=== PATIENT | male | born 1995 | race African-American/Black ===

== ENCOUNTER → 2025-04-07 | Outpatient (CLI) | payer BC ==
[2025-04-07 12:51] LABS: BASOPHILS % 0.6 % (0.0-2.0); EOSINOPHILS % 6.5 % (0.0-5.0); HEMATOCRIT. 41.5 % (42.0-52.0); HEMOGLOBIN. 13.3 g/dL (14.0-18.0); LYMPHOCYTES % 40.9 % (20.0-50.0); MEAN PLATELET VOLUME 8.8 fl (7.4-10.4); MONOCYTES % 11.1 % (2.0-8.0); NEUTROPHILS % 40.9 % (40.0-76.0); PLATELET 175 x1000/uL (130-400); RED BLOOD CELL COUNT 5.24 mill/uL (4.7-6.1); RED CELL DISTRIBUTION WIDTH 14.3 % (11.6-14.6)
[2025-04-07 13:06] LABS: CREATININE 1.1 mg/dL (0.6-1.3)
[2025-04-07 13:07] LABS: LDL CHOLESTEROL 99 mg/dL (5-100); TRIGLYCERIDE 45 mg/dL (0-150); UREA NITROGEN BLOOD 13 mg/dL (9-23)
[2025-04-07 13:08] LABS: ASPARTATE AMINOTRANSFERASE 52 IU/L (<34); CLARITY URINE CLEAR (CLEAR); COLOR URINE YELLOW (YELLOW); GLUCOSE URINE NEGATIVE (NEGATIVE); KETONES URINE NEGATIVE (NEGATIVE); LEUKOCYTE ESTERASE URINE NEGATIVE (NEGATIVE); NITRITE URINE NEGATIVE (NEGATIVE); OCCULT BLOOD URINE NEGATIVE (NEGATIVE); PH URINE 6.0 (4.5-8.0); PROTEIN URINE NEGATIVE (NEGATIVE); SPECIFIC GRAVITY URINE 1.025 (1.005-1.030); UROBILINOGEN URINE 0.2 E.U./dL (0.2-1.0)
[2025-04-07 13:09] LABS: BILIRUBIN TOTAL 0.6 mg/dL (0.1-1.0); PROTEIN TOTAL 7.3 g/dL (6.0-8.3)
[2025-04-07 13:30] LABS: FOLIC ACID (FOLATE) SERUM 15.95 ng/mL (>5.38); VITAMIN B12 SERUM 630 pg/mL (211-911)
== END | disposition home or self-care (01) ==
LOC: LAB 12:25
PROVIDERS: ATTEND Internal Medicine
DX: R73.03 Prediabetes (principal); D64.9 Anemia, unspecified; Z00.00 Encounter for general adult medical examination without abnormal findings
CPT/HCPCS: 36415; 80053; 80061; 81003; 82607; 82728; 82746; 83021; 83036; 83540; 83550; 84443; 85025; 85660

== ENCOUNTER 2025-05-02 23:00 | Inpatient (IN) | payer BC ==
[~2025-05-02] VITALS: Ht 170.2 cm; Wt 93.0 kg
[2025-05-02 23:05] VITALS: O2SAT 100
[2025-05-02 23:29] LABS: BASOPHILS % 0.3 % (0.0-2.0); EOSINOPHILS % 3.2 % (0.0-5.0); HEMATOCRIT. 40.2 % (42.0-52.0); HEMOGLOBIN. 13.0 g/dL (14.0-18.0); LYMPHOCYTES % 19.1 % (20.0-50.0); MEAN PLATELET VOLUME 9.6 fl (7.4-10.4); MONOCYTES % 7.6 % (2.0-8.0); NEUTROPHILS % 69.8 % (40.0-76.0); PLATELET 154 x1000/uL (130-400); RED BLOOD CELL COUNT 5.12 mill/uL (4.7-6.1); RED CELL DISTRIBUTION WIDTH 14.3 % (11.6-14.6)
[2025-05-02 23:40] LABS: CREATININE 1.2 mg/dL (0.6-1.3)
[2025-05-02 23:41] LABS: UREA NITROGEN BLOOD 16 mg/dL (9-23)
[2025-05-02 23:42] LABS: ASPARTATE AMINOTRANSFERASE 25 IU/L (<34)
[2025-05-02 23:43] LABS: BILIRUBIN DIRECT 0.1 mg/dL (<=3.0); BILIRUBIN TOTAL 0.6 mg/dL (0.1-1.0); PROTEIN TOTAL 7.6 g/dL (6.0-8.3)
[2025-05-02] MEDS: ONDANSETRON HCL 4MG/2ML INJ IV ONE (23:53)
[2025-05-02] MEDS: MORPHINE SULFATE 4 MG/ML INJ (FOR IV/IM USE) IV ONE (23:54)
[2025-05-03] MEDS: MORPHINE SULFATE 2 MG/ML INJ (NOT FOR IM USE) IV ONE (01:54)
[2025-05-03 04:15] VITALS: BP 122/63; PULSE 76; RESP 14; TEMP 36.5; O2SAT 100
[2025-05-03 05:21] VITALS: BP 122/63; PULSE 76; RESP 14; TEMP 37.0852
[2025-05-03 08:00] VITALS: BP 116/64; PULSE 87; RESP 17; TEMP 36.2; O2SAT 100
[2025-05-03] MEDS ORDERED: IPRATROPIUM/ALBUTEROL 0.5-3(2.5)MG/3ML NEB HHN PRN (10:15)
[2025-05-03] MEDS ORDERED: ACETAMINOPHEN 325MG TABLET PO PRN ×2 (10:15)
[2025-05-03] MEDS ORDERED: ONDANSETRON HCL 4MG/2ML INJ IV PRN ×2 (10:15→14:15)
[2025-05-03] MEDS ORDERED: CLONIDINE 0.1MG TABLET PO PRN (10:15)
[2025-05-03] MEDS: SODIUM CHLORIDE 0.9% 1,000 ML IV SCH (11:17)
[2025-05-03] MEDS: PIPERACILLIN/TAZO 3.375G/50ML 50 ML IV SCH (11:17)
[2025-05-03 12:00] VITALS: BP 117/67; PULSE 74; RESP 16; TEMP 36.3; O2SAT 100
[2025-05-03 12:38] LABS: INR 1.0
[2025-05-03] MEDS ORDERED: HYDROMORPHONE HCL/PF 1MG/ML INJ IV PRN (14:00)
[2025-05-03] MEDS ORDERED: HYDRALAZINE 20MG/ML VIAL IV PRN (14:00)
[2025-05-03] MEDS ORDERED: LABETALOL 5MG/ML 4ML INJ IV PRN (14:15)
[2025-05-03] MEDS ORDERED: DEXAMETHASONE 4MG/ML 1ML VIAL IV PRN (14:15)
[2025-05-03] MEDS ORDERED: GLYCOPYRROLATE 0.2 MG/ML 2ML VIAL IV PRN (14:30)
[2025-05-03] MEDS ORDERED: BUPIVACAINE HCL/PF 0.5% (5MG/ML) 10ML ONE (15:45)
[2025-05-03] MEDS ORDERED: LIDOCAINE HCL 1% 20ML VIAL ONE (15:45)
[2025-05-03] MEDS ORDERED: POLYMYXIN B SULFATE 500000 UNITS/VIAL ONE (15:45)
[2025-05-03] MEDS ORDERED: SKIN ADHESIVE 0.7 GM EA TOP ONE (15:45)
[2025-05-03] MEDS ORDERED: MIDAZOLAM HCL 2 MG/2 ML VIAL ONE (15:50)
[2025-05-03] MEDS ORDERED: HYDROMORPHONE HCL/PF 1MG/ML INJ ONE (15:51)
[2025-05-03] MEDS ORDERED: ROCURONIUM BROMIDE 10MG/ML VIAL 5ML IV ONE (15:52)
[2025-05-03] MEDS ORDERED: FENTANYL CITRATE/PF 50MCG/ML 2ML VIAL ONE (15:59)
[2025-05-03] MEDS ORDERED: HYDROCODONE/ACETAMINOPHEN 5/325MG TABLET PO PRN (17:45)
[2025-05-03] MEDS ORDERED: NALOXONE HCL 0.4MG/ML VIAL IV PRN (18:00)
[2025-05-03] MEDS: HYDROMORPHONE HCL/PF 1MG/ML INJ IV PRN ×2 (18:31→18:37)
[2025-05-03 20:00] VITALS: BP 112/62; PULSE 80; RESP 14; TEMP 36.6; O2SAT 98
[2025-05-03] MEDS: MORPHINE SULFATE 2 MG/ML INJ (NOT FOR IM USE) IV PRN (21:17)
[2025-05-04] VITALS: BP 110/59; PULSE 80; RESP 16; TEMP 37.2; O2SAT 98
[2025-05-04 04:00] VITALS: BP 135/62; PULSE 63; RESP 14; TEMP 37.8; O2SAT 100
[2025-05-04 08:00] VITALS: BP 112/61; PULSE 70; RESP 20; TEMP 36.3; O2SAT 98
[2025-05-04 10:00] LABS: CREATININE 1.0 mg/dL (0.6-1.3); UREA NITROGEN BLOOD 8 mg/dL (9-23)
[2025-05-04 10:06] LABS: BASOPHILS % 0.1 % (0.0-2.0); EOSINOPHILS % 0.1 % (0.0-5.0); HEMATOCRIT. 39.0 % (42.0-52.0); HEMOGLOBIN. 12.8 g/dL (14.0-18.0); LYMPHOCYTES % 10.7 % (20.0-50.0); MEAN PLATELET VOLUME 9.9 fl (7.4-10.4); MONOCYTES % 7.1 % (2.0-8.0); NEUTROPHILS % 82.0 % (40.0-76.0); PLATELET 154 x1000/uL (130-400); RED BLOOD CELL COUNT 4.98 mill/uL (4.7-6.1); RED CELL DISTRIBUTION WIDTH 14.7 % (11.6-14.6)
[2025-05-04 15:31] VITALS: BP 124/80; PULSE 76; RESP 17; TEMP 98.8
== END 2025-05-04 16:33 | disposition home or self-care (01) | DRG 399 ==
LOC: ER 23:00 → 7EST 05-03 02:43 → ENRESERV 05-03 03:25
PROVIDERS: ADMIT Internal Medicine; ATTEND Internal Medicine
PROC: 0DTJ4ZZ Resection of Appendix, Percutaneous Endoscopic Approach (ICD-10-PCS; principal; 2025-05-03)
DX: K35.80 Unspecified acute appendicitis (principal); N43.3 Hydrocele, unspecified; K66.0 Peritoneal adhesions (postprocedural) (postinfection)
CPT/HCPCS: 36415; 74176; 76870; 80048; 80076; 82962; 85025; 86850; 86900; 88304; 93005; 93976; 99285; A4606; J0665; J1171; J2003; J2250; J2270; J2405; J2543; J3010; J3490; J7030

== ENCOUNTER → 2025-07-17 | Outpatient (CLI) | payer BC ==
[2025-07-17 12:46] LABS: BASOPHILS % 0.9 % (0.0-2.0); EOSINOPHILS % 7.5 % (0.0-5.0); HEMATOCRIT. 40.5 % (42.0-52.0); HEMOGLOBIN. 13.1 g/dL (14.0-18.0); LYMPHOCYTES % 45.4 % (20.0-50.0); MEAN PLATELET VOLUME 9.1 fl (7.4-10.4); MONOCYTES % 8.9 % (2.0-8.0); NEUTROPHILS % 37.3 % (40.0-76.0); PLATELET 156 x1000/uL (130-400); RED BLOOD CELL COUNT 5.16 mill/uL (4.7-6.1); RED CELL DISTRIBUTION WIDTH 14.7 % (11.6-14.6)
[2025-07-17 13:07] LABS: CREATININE 1.1 mg/dL (0.6-1.3); UREA NITROGEN BLOOD 9 mg/dL (9-23)
[2025-07-17 13:09] LABS: ASPARTATE AMINOTRANSFERASE 28 IU/L (<34); BILIRUBIN DIRECT 0.1 mg/dL (<=3.0); BILIRUBIN TOTAL 0.6 mg/dL (0.1-1.0); PROTEIN TOTAL 7.7 g/dL (6.0-8.3)
[2025-07-17 13:12] LABS: T4 FREE 1.09 ng/dL (0.89-1.76)
[2025-07-17 13:43] LABS: HEPATITIS A AB IGM NEGATIVE (Negative)
[2025-07-17 13:44] LABS: HEPATITIS B CORE AB IGM NEGATIVE (Negative); HEPATITIS C AB NON REACTIVE (Neg) (Negative)
== END | disposition home or self-care (01) ==
LOC: LAB 07-03 15:05
PROVIDERS: ATTEND Internal Medicine
DX: D72.819 Decreased white blood cell count, unspecified (principal); D64.9 Anemia, unspecified; R74.01 Elevation of levels of liver transaminase levels; Z13.29 Encounter for screening for other suspected endocrine disorder
CPT/HCPCS: 36415; 80048; 80074; 80076; 82270; 82274; 84439; 84443; 85025; 86705; 86709; 87340